=== PATIENT | female | born 1960 | race African-American/Black ===

== ENCOUNTER 2024-11-23 21:24 | Emergency (ER) | payer OTHER, MEDICARE, MEDICAID ==
[~2024-11-23] VITALS: Ht 162.6 cm; Wt 74.8 kg
[2024-11-23] MEDS: IPRATROPIUM NEB FS 0.5 MG/2.5 ML AMPUL.NEB NEB ONE (22:00)
[2024-11-23] MEDS: ALBUTEROL FS 2.5 MG/3 ML VIAL.NEB CONTNEB ONE (22:00)
[2024-11-23 22:01] VITALS: O2SAT 96
[2024-11-23] MEDS ORDERED: ALBUTEROL FS 2.5 MG/3 ML VIAL.NEB ONE (22:02)
[2024-11-23] MEDS ORDERED: IPRATROPIUM NEB FS 0.5 MG/2.5 ML AMPUL.NEB ONE (22:02)
[2024-11-23 22:16] VITALS: O2SAT 99
[2024-11-23 22:21] VITALS: O2SAT 99
[2024-11-23 22:36] VITALS: O2SAT 99
[2024-11-23 23:30] VITALS: BP 132/78; TEMP 98.4; O2SAT 99
== END 2024-11-23 23:30 | disposition home or self-care (01) ==
LOC: ER 21:26 → EDBD 21:26 → ER 23:30
DX: J44.9 Chronic obstructive pulmonary disease, unspecified (principal); R06.02 Shortness of breath; F17.200 Nicotine dependence, unspecified, uncomplicated; Z65.3 Problems related to other legal circumstances
CPT/HCPCS: 71045-TC